=== PATIENT | male | born 1980 | race Caucasian/White ===

== ENCOUNTER 2017-02-27 00:53 | Emergency (ER) | payer BC ==
--- NOTE | 2017-02-27 01:41 | ER NURSING DOCUMENTATION ---
Nurse's Notes [facility] Name:Carlos Alberto Nichols Age:36 yrs Sex:Male :1980 Arrival Date:02/27/2017 Time:00:53 Bed5 Private MD: Diagnosis:Hypoxia Presentation: 02/27 01:01 Presenting complaint: Patient states: short of breath, chest tightness today after 7 lb mile hike. to altitude yesterday. Transition of care: Camp. 01:01 Acuity: TOBY 2 lb 01:01 Method Of Arrival: Walk In lb 01:03 AIR CAT ACTIVATION no. Asprin Given n/a. Notified ED Physician of Dr. Dubose notified. lb Triage Assessment: 01:04 General: Appears in no apparent distress, Behavior is appropriate for age, pleasant. lb Pain: Denies pain. Cardiovascular: No deficits noted. Rhythm is sinus rhythm. Respiratory: Airway is patent Trachea midline Respiratory effort is even, unlabored, Respiratory pattern is regular, symmetrical, Breath sounds are clear bilaterally. Historical: - Allergies: No known drug Allergies; - Home Meds: 1. Azithromycin Oral 2. itroconazole 3. Zenpep oral - PMHx: cystic fibrosis; - PSHx: None; - Tetanus: < 10 years. - Ebola Screening: : Patient denies exposure to infectious person. Patient denies travel to an Ebola-affected area in the 21 days before illness onset. . - Immunization history: Flu Vaccine < 1 year. - Social history: Smoking status: Patient states was never smoker of tobacco. Patient uses alcohol only on a social basis. Screenin:06 Infectious Disease Risk None. Abuse screen: Denies threats or abuse. Denies injuries lb from another. Nutritional screening: No deficits noted. Assessment: 01:06 See Triage Assessment done by same RN. Pain: Denies pain. lb 01:40 Pain: Denies pain. lb Vital Signs: 01:05 BP 133 / 89; Pulse 107; Resp 18; Temp 99.5(TE); Pulse Ox 88% on R/A; Weight 79.38 kg; lb Height 6 ft. 3 in. (190.50 cm); Pain 0/10; 01:05 Body Mass Index 21.87 (79.38 kg, 190.50 cm) lb ED Course: 00:54 Patient arrived in ED. em3 01:01 Rahel Spann is Primary Nurse. lb 01:03 Triage completed. lb 01:06 Valuables Remains with patient. Pulse ox on. NIBP on. lb 01:08 Marcin Dubose MD is Attending Physician. be Administered Medications: No medications were administered Outcome: 01:17 Discharge ordered by . be 01:39 Discharged to [facility] lb 01:39 Condition: stable 01:39 Discharge Assessment: Patient awake, alert and oriented x 3. No cognitive and/or functional deficits noted. Patient verbalized understanding of disposition instructions. 01:39 Instructed on discharge instructions, follow up and referral plans. 01:40 Patient left the ED. lb 02/28 13:27 Discharge F/U Call: Spoke with: patient. other: Name: pt is back home in [place] and all symptoms have resolved. Signatures: Phylicia Peralta, RN RN Marcin Lozano MD MD be Meiklejohn, Eric em3 Rahel Spann
--- NOTE | 2017-02-27 01:41 | ER PHYSICIAN DOCUMENTATION ---
Physician Documentation [facility] Name:Carlos Alberto Nichols Age:36 yrs Sex:Male :1980 Arrival Date:02/27/2017 Time:00:53 Bed5 Private MD: Marcin Lemos Disposition: 02/27 01:38 Critical Care: not applicable. be Disposition: 02/27/17 01:17 Discharged to Home/Self Care. Impression: Hypoxia. - Condition is Good. - Discharge Instructions: ALTITUDE SICKNESS. - Medical Reconciliation form form. - Follow up: Private Physician; When: As needed; Reason: Recheck today's complaints. - Problem is an acute exacerbation. - Symptoms have improved. HPI: 01:31 This 36 yrs old Male presents to ER via Walk In with complaints of Chest Pain.be 01:31 The patient or guardian reports chest pain that is located primarily in the chest be diffusely. The pain does not radiate. Associated signs and symptoms: Pertinent positives: recent travel, shortness of breath, Pertinent negatives: cough, lower extremity swelling, nausea, headache or malaise. The chest pain is described as a heaviness. Cystic fibrosis [place] that [place], and hiked 7 miles today. Denied any symptoms until tonight trying to sleep. Historical: - Allergies: No known drug Allergies; - Home Meds: 1. Azithromycin Oral 2. itroconazole 3. Zenpep oral - PMHx: cystic fibrosis; - PSHx: None; - Tetanus: < 10 years. - Ebola Screening: : Patient denies exposure to infectious person. Patient denies travel to an Ebola-affected area in the 21 days before illness onset. . - Immunization history: Flu Vaccine < 1 year. - Social history: Smoking status: Patient states was never smoker of tobacco. Patient uses alcohol only on a social basis. ROS: 01:33 Cardiovascular: Positive for chest pain, Negative for edema, orthopnea, palpitations, be paroxysmal nocturnal dyspnea. 01:33 All other systems are negative. Exam: 01:34 Constitutional: This is a well developed, well nourished patient who is awake, alert, be and in no acute distress. 01:34 Cardiovascular: Rate: tachycardic, Rhythm: 01:34 Respiratory: the patient does not display signs of respiratory distress, Respirations: normal. 01:34 Abdomen/GI: Inspection: abdomen appears normal. Vital Signs: 01:05 BP 133 / 89; Pulse 107; Resp 18; Temp 99.5(TE); Pulse Ox 88% on R/A; Weight 79.38 kg; lb Height 6 ft. 3 in. (190.50 cm); Pain 0/10; 01:05 Body Mass Index 21.87 (79.38 kg, 190.50 cm) lb MDM: 01:08 Patient medically screened. be 01:35 Differential diagnosis: altitude sickness, cystic fibrosis. Data reviewed: vital signs, be nurses notes, and as a result, I will discharge patient, strongly encouraged descent, which he agreed to do, now. 01:38 The patient was not given aspirin in the Emergency Department. 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 be Dispensed Medications: No medications were administered Signatures: Marcin Dubose MD MD be Rahel Spann
== END 2017-02-27 01:41 | disposition home or self-care (01) ==
LOC: ER 00:53
DX: R09.02 Hypoxemia (principal); R07.9 Chest pain, unspecified; R00.0 Tachycardia, unspecified; E84.9 Cystic fibrosis, unspecified; Z79.899 Other long term (current) drug therapy
CPT/HCPCS: 99283